=== PATIENT | female | born 1970 | race Caucasian/White ===

== ENCOUNTER → 2017-02-01 | Outpatient (CLI) | payer BC ==
--- NOTE | 2017-02-01 14:59 | US ---
EXAM DESCRIPTION: Breast,Right CLINICAL HISTORY: LYMPHADENOPATHY, LOCALIZED ENLARGED LYMPH NODES. "I have breast tissue in my armpit. This knot in my right armpit is larger and more tender than others I have had previously." Patient has refused digital mammography and breast MRI with gadolinium IV contrast. COMPARISON: None Available. TECHNIQUE: Transcutaneous scanning: Two-dimensional and Doppler modes. FINDINGS: Irregular hypoechoic heterogeneous mass with minimal vascularity in the right axilla. The mass is palpable and has indistinct and micro-lobulated margins. Non parallel orientation. Mixed posterior features. Dimensions are 2.3 x 1.9 x 1.5 cm. No other discrete solid nodules, no cysts, no parenchymal edema, and no calcifications. IMPRESSION: BI-RADS CATEGORY: 4A - LOW SUSPICION FOR MALIGNANCY. Surgical consultation and tissue diagnosis should be considered. Also digital 3-D bilateral breast tomosynthesis and bilateral breast MRI with gadolinium IV contrast. Findings and follow-up plan were discussed in person with the patient. Written communication explaining the results and follow-up will be mailed to the patient and referring care provider. CRITICAL COMMUNICATION: The critical value was discussed directly by phone with AURE Noriega, at approximately 1445 hours, on February 01, 2017. Electronically signed by: Rafy Sauceda MD 02/01/2017 2:58 PM CDT
== END | disposition home or self-care (01) ==
LOC: US 13:24
PROVIDERS: ATTEND Nurse Practitioner Family
DX: R59.0 Localized enlarged lymph nodes (principal)

== ENCOUNTER → 2017-02-08 | Outpatient (CLI) | payer BC ==
--- NOTE | 2017-02-08 17:15 | US ---
EXAM DESCRIPTION: Breast,Bilateral CLINICAL HISTORY: 46 yearsFemaleABNORMAL BILATERAL BREAST DENSITIES. ABNORMAL MASS IN RIGHT AXILLA ON PRIOR ULTRASOUND. COMPARISON: Digital 3-D tomosynthesis bilateral breast examination today. Ultrasound of the right breast axilla on 02/01/2017. TECHNIQUE: Transcutaneous scanning of the bilateral breasts utilizing two-dimensional and Doppler modes. Scanning performed by the tray delivery aide and Dr. Sauceda. FINDINGS: Hypoechoic lobulated mass with mostly well-circumscribed borders with some borders not well defined, at the 1000 clock position retroareolar right breast. Minimal vascularity on the periphery. Nonparallel orientation. Acoustic enhancement posterior. Dimensions 10.5 x 9.8 cm. At the 1200 clock position of the right breast are anechoic masses with well-defined borders, and no vascularity and posterior acoustic enhancement. Other smaller cysts in the right breast. At the 300 clock position of the left breast, 3 cm from the nipple is a oval-shaped anechoic mass with possible septations or well-circumscribed borders measuring 4.3 X 3.7 x 2.4 cm with no vascularity. Acoustic enhancement posterior. Smaller cysts ranging in size from 15 to 10 mm abutting this larger cyst. At the 300 clock position of the left breast, 8 cm from the nipple, is a hypoechoic mass with minimal lobulation and mostly well circumscribed and partially obscured margins. Parallel orientation. Minimal vascularity of the periphery. Attenuation acoustic posterior features. 8 x 7 mm diameter. Other smaller cysts in the right breast. IMPRESSION: BI-RADS CATEGORY: SUSPICIOUS. SUB-CATEGORY 4A - LOW SUSPICION FOR MALIGNANCY. Surgical consultation and tissue diagnosis should be considered (bilateral lesions). Written communication explaining the results and follow-up will be mailed to the patient and referring care provider. The findings and the follow-up plan were reviewed in person with the patient after the examination. CRITICAL COMMUNICATION: The critical value was discussed directly by phone with Dr. Elias Rivers at approximately 1615 hours, on February 08, 2017. Electronically signed by: Rafy Sauceda MD 02/08/2017 5:14 PM CDT
--- NOTE | 2017-02-10 09:23 | MAM ---
EXAM DESCRIPTION: 3D Diagnostic, Bilateral CLINICAL HISTORY: 46 yearsFemaleLYMPHADENOPATHY . "Lump in right armpit." Bilateral mammoplasty. No family history of breast cancer. Premenopausal. HRT five or less years ago, not currently. COMPARISON: 2-D digital screening bilateral study 06/17/2011. Ultrasound of the right axilla 02/01/2017. Targeted bilateral breast ultrasound on this visit. Report from prior examination also reviewed. TECHNIQUE: Bilateral CC, LM and MLO projection full-field images, 3-D tomosynthesis digital mammographic technique. Also bilateral synthesized CC/ MLO and LM full-field images. CAD not utilized. FINDINGS: The breast parenchymal density pattern is: Extremely dense breast tissue, which lowers the sensitivity of mammography. No skin thickening or nipple retraction . Left breast: mass density in the lateral aspect of the middle third of the left breast at the 230 clock position with partially well-circumscribed and partially indistinct margins. No definite calcifications. Dimensions are 3.6 x 3.8 cm. Posterior to this mass is a region of focal asymmetry measuring approximately 10 x 15 mm at approximately the 300 clock position. No microcalcifications. Another subcentimeter mass with well circumscribed borders is seen in the same region. No microcalcifications. Right breast: Large dense well-circumscribed mass in the right axilla measuring 2.0 x 1.7 cm with small calcification. This was scanned on sonographic examination February 01. Small oval-shaped mass density, mostly well circumscribed borders with some indistinctness measuring 1.4 x 1.3 cm at the 10-o'clock position, 4 cm from the nipple. ULTRASOUND: Right breast - Hypoechoic lobulated mass with mostly well-circumscribed borders with some borders indistinct, at the 1000 clock position retroareolar. Minimal vascularity on the periphery. Nonparallel orientation. Acoustic enhancement posterior. Dimensions 10.5 x 9.8 cm. At the 1200 clock position, anechoic masses with well-defined borders, no vascularity and posterior acoustic enhancement. Other smaller cysts in the breast. Left breast - At the 300 clock position, 3 cm from the nipple is a oval-shaped anechoic mass with possible septations or well-circumscribed borders measuring 4.3 X 3.7 x 2.4 cm with no vascularity. Acoustic enhancement posterior. Smaller cysts ranging in size from 15 to 10 mm abutting this larger cyst. At the 300 clock position of the left breast, 8 cm from the nipple, is a hypoechoic mass with minimal lobulation and mostly well circumscribed and partially obscured margins. Parallel orientation. Minimal vascularity of the periphery. Attenuation acoustic posterior features. 8 x 7 mm diameter. Other smaller cysts in the right breast. IMPRESSION: BI-RADS CATEGORY 4: SUSPICIOUS. SUB-CATEGORY 4A - LOW SUSPICION FOR MALIGNANCY. Surgical consultation and tissue diagnosis should be considered. The findings and follow-up were discussed in person with the patient following the ultrasound examination. Written communication explaining the results and follow-up will be mailed to the patient and referring care provider. CRITICAL COMMUNICATION: The critical value was discussed directly by phone with Dr. Elias Rivers at approximately 1615 hours, on February 08, 2017. Electronically signed by: Rafy Sauceda MD 02/10/2017 9:22 AM CDT
== END ==
LOC: MAMMO 14:01
PROVIDERS: ATTEND Surgery
DX: R59.0 Localized enlarged lymph nodes (principal); N60.02 Solitary cyst of left breast

== ENCOUNTER → 2017-02-22 | Outpatient (CLI) | payer BC ==
--- NOTE | 2017-02-22 09:28 | US ---
EXAM DESCRIPTION: Biopsy/Needle Guidance CLINICAL HISTORY: 46 yearsFemaleRT AND LT BREAST LESIONS AND RT AXILLARY MASS COMPARISON: Diagnostic ultrasound of the left breast on 02/08/2017. TECHNIQUE: The procedure was performed by Dr. Rivers. Repeat ultrasound localized the lesion at the 300 clock position of the left breast. Sterile preparation. Sterile ultrasound guidance. FINDINGS: Previously imaged hypoechoic lobulated lesion at the 300 clock position of the left breast 8 cm from the nipple. Attenuated posterior features again noted. Multiple orthogonal images showing the biopsy needle within the mass. IMPRESSION: Successful, ultrasound-guided fine-needle core biopsy of left breast mass. Pathology examination at remote facility, results pending. Electronically signed by: Rafy Sauceda MD 02/22/2017 9:27 AM CDT
--- NOTE | 2017-02-22 11:04 | US ---
EXAM DESCRIPTION: Biopsy/Needle Guidance CLINICAL HISTORY: 46 yearsFemaleABN MAMMO COMPARISON: Diagnostic ultrasound of the right breast on 02/08/2017. TECHNIQUE: The procedure was performed by Dr. Rivers. Repeat ultrasound localized the lesion at the 1000 position of the retroareolar right breast. Sterile preparation. Sterile ultrasound guidance. Technically difficult study due to mass displacement by the needle. FINDINGS: Hypoechoic-anechoic lesion with lobulated borders again scanned. Posterior mixed features with parallel orientation. Images demonstrate displacement of the mass with the needle, but orthogonal images show the needle within the mass. IMPRESSION: Successful, ultrasound-guided fine-needle core biopsy of right breast mass. Cores were obtained. Pathology examination at remote facility, results pending. Electronically signed by: Rafy Sauceda MD 02/22/2017 11:02 AM CDT
--- NOTE | 2017-02-22 11:09 | US ---
EXAM DESCRIPTION: Biopsy/Needle Guidance ultrasound. CLINICAL HISTORY: 46 yearsFemaleABN MAMMO COMPARISON: Diagnostic ultrasound of the bilateral breast on 02/08/2017. Bilateral breast ultrasound guided core biopsies on this visit. TECHNIQUE: The procedure was performed by Dr. Rivers. Repeat ultrasound localized the lesion in the right axilla. Sterile preparation. Sterile ultrasound guidance. FINDINGS: Initial images show 2 x 2 cm heterogeneous hypoechoic mass in the right axilla with nonparallel orientation and attenuating posterior features. Multiple images with orthogonal images showing the echogenic needle within the mass. IMPRESSION: Successful, ultrasound-guided needle core biopsy of right axillary mass. Adequate cores were obtained. Pathology examination at remote facility, results pending. Electronically signed by: Rafy Sauceda MD 02/22/2017 11:08 AM CDT
--- NOTE | 2017-02-23 11:31 | OP ---
DATE OF PROCEDURE: 02/22/17 PREOPERATIVE DIAGNOSIS: 1. Abnormal right and left mammogram with solid masses and right axillary mass. POSTOPERATIVE DIAGNOSIS: 1. Abnormal right and left mammogram with solid masses and right axillary mass. PROCEDURE: 1. Sonographically guided needle core biopsy, left breast mass, right breast mass, and right axillary mass. SURGEON: Elias Rivers MD. BIOMASS PRODUCTION MANAGER: None. ANESTHESIA: Local infiltration with 1% lidocaine. INDICATION: The patient is a 46-year-old female who has had multiple cysts in the past. She developed a right axillary mass sometime ago. It is solid in nature. There is no palpable mass in either breast, but mammography revealed masses in both breasts along with multiple cystic lesions. Today, she was brought to the [facility]ound [facility] for sonographically guided biopsy of each lesion. PROCEDURE: The lesions were done with separate sets of instruments and they were done first with the left breast, then the right breast, then the right axilla. All procedures were the same. The lesion was identified. The skin away from this was prepped with Betadine and draped. Local infiltration of anesthesia was obtained with lidocaine. A stab wound was made with a 15 blade and then multiple passes were made with the needle core biopsy device. All three specimens had specimen sent for permanent pathological identification and the axillary lesion also had tissue sent for flow cytometry if there is any abnormality on the axillary lesion and it is not obviously breast malignancy. All of the skin incisions were closed with a single 4-0 Prolene suture. The patient tolerated the procedure well. Estimated blood loss was approximately 10 mL for all three areas. Sterile pressure dressing was applied. The patient tolerated the procedure well and was discharged home. #[id number] [id number]
== END | disposition home or self-care (01) ==
LOC: US 08:00
PROVIDERS: ATTEND Surgery
PROC: 0HBV3ZX Excision of Bilateral Breast, Percutaneous Approach, Diagnostic (ICD-10-PCS; principal; 2017-02-22)
PROC: 0HBV3ZX Excision of Bilateral Breast, Percutaneous Approach, Diagnostic (ICD-10-PCS; 2017-02-22)
PROC: 0JB63ZX Excision of Chest Subcutaneous Tissue and Fascia, Percutaneous Approach, Diagnostic (ICD-10-PCS; 2017-02-22)
DX: R92.2 Inconclusive mammogram (principal); L98.8 Other specified disorders of the skin and subcutaneous tissue

== ENCOUNTER → 2017-09-01 | Outpatient (CLI) | payer BC ==
--- NOTE | 2017-09-02 09:49 | MAM ---
EXAM DESCRIPTION: Diagnostic Mammo,Bilateral: Digital Mammography CLINICAL HISTORY: 47 yearsFemaleDX FOLLOW UP . Six-month Follow-up benign bilateral breast biopsy January 2017.. No complaints. No family history of breast cancer. Taking HRT more than 5 years ago. Previous bilateral breast reduction. COMPARISON: 3-D tomosynthesis bilateral diagnostic mammography 02/08/2018.. Reports from prior examinations also reviewed. TECHNIQUE: Bilateral CC LM MLO projection full-field images, 3-D tomosynthesis digital mammographic technique. Also bilateral synthesized CC MLO LM full-field images. CAD not utilized. FINDINGS: The breast parenchymal density pattern is: Extremely dense breast tissue, which lowers the sensitivity of mammography. No skin thickening or nipple retraction bilateral axillary lymph nodes. Largest lymph node in the right axilla also contains calcifications. Bilateral solitary microcalcifications. No focal, stellate mass or density, focal asymmetry , and no suspicious microcalcifications bilaterally. Stable mammograms compared to prior study, taking into account differences in mammographic technique IMPRESSION: BI-RADS CATEGORY: 2 - BENIGN FINDINGS. FOLLOW UP: Return to routine digital bilateral screening, one year interval from August 2017. Written communication explaining the IMPRESSION and follow-up, will be mailed to the patient and referring health care provider. According to the [employer], yearly mammograms are recommended starting at age 40 and continuing as long as a woman is in good health. Any breast change noted on a breast self-exam should be reported promptly to the patient's healthcare provider. Breast MRI is recommended for women with an approximately 20-25% or greater lifetime risk of breast cancer, including women with a strong family history of breast or ovarian cancer and women who have been treated for Hodgkin's disease. A negative mammographic report should not delay tissue diagnosis in patients with significant clinical history or physical findings. Extremely dense breast tissue limits the sensitivity of digital mammography. Electronically signed by: Rafy Sauceda MD 09/02/2017 9:47 AM CDT
== END | disposition home or self-care (01) ==
LOC: MAMMO 09:07
PROVIDERS: ATTEND Surgery
DX: Z12.31 Encounter for screening mammogram for malignant neoplasm of breast (principal)

== ENCOUNTER → 2017-12-16 | Outpatient (CLI) | payer BC ==
--- NOTE | 2017-12-16 15:26 | MRI ---
EXAM DESCRIPTION: Cervical Spine: MRI. CLINICAL HISTORY: NECK PAIN COMPARISON: MRI scan of the lumbar spine on this visit. TECHNIQUE: Multiplanar MRI, multiple sequences, non-contrast High-field. FINDINGS: C2-3: Minimal disc desiccation. No bulging. Disc space preserved. Canal and foramina are patent. Posterior elements unremarkable C3-4: Normal signal in the disc with minimal disc space loss. Left uncinate spur and minimal narrowing of the neural foramen. Canal and right neuroforamen patent. Posterior elements are unremarkable. C4-5: Minimal disc desiccation and minimal disc space loss. No disc bulging. Posterior elements unremarkable. Canal and foramina are patent. C5-6: Disc desiccation and mild to moderate disc space loss. Grade 1 retrolisthesis. Posterior disc osteophyte complex abutting the cord. Bilateral uncinate spurs. Bilateral moderate neural foraminal narrowing. Moderate canal narrowing. Hypertrophy of the posterior ligaments, facets are unremarkable. C6-7: Disc desiccation and minimal disc space loss. Modic type I endplate reactive changes. Posterior mild bulge.. Bilateral small uncinate spurs. Bilateral mild neural foraminal narrowing. Canal is patent. Mild arthrosis of the facets bilaterally. Normal signal in the remaining discs with no bulging. Disc spaces preserved. Canal and neural foramina are patent. Facets unremarkable. Spinal alignment anatomic.. No cord compression or cord edema. Atlantoaxial joint is unremarkable. Base of the cerebellar tonsils is above the foramen magnum. Paravertebral soft tissues negative. Vertebral bodies are not compressed at any level. Normal marrow signal in the remaining vertebral bodies and the posterior elements. IMPRESSION: 1. Disc desiccation at several levels. Mild spondylosis at C5-6 and C6-7. 2. No canal or foraminal stenosis at any level. No significant facet arthrosis. No acute bony abnormality. No cord compression or edema. Electronically signed by: Rafy Sauceda MD 12/16/2017 3:25 PM CDT
--- NOTE | 2017-12-16 15:42 | MRI ---
EXAM DESCRIPTION: Lumbar Spine w/o Contrast : Magnetic Resonance Imaging. CLINICAL HISTORY: LOW BACK PAIN COMPARISON: MRI scan of the cervical spine on this visit. MRI scan lumbar spine June 2013. TECHNIQUE: Multiplanar, multiple standard sequences, non contrast MRI, lumbar spine. FINDINGS: L5-S1: Disc desiccation and disc space loss. Left paracentral disc protrusion has extruded more inferiorly, now approximately 9 mm of inferior extension with mass effect on the descending left S1 in the lateral recess. Left paracentral mild canal stenosis. Bilateral foramina are patent. Anterior Modic type II endplate reactive changes in the endplates. Minimal facet arthrosis and flavum ligament hypertrophy. L4-5: Normal signal in the disc and disc space preserved. Posterior elements unremarkable. Canal and foramina are patent. L3-4: Minimal disc space loss with desiccation. Minimal hypertrophy of the flavum ligaments. Facets are unremarkable. Canal and neural foramina are patent. L2-3: Normal signal in the disc and disc space preserved. Posterior elements unremarkable. Canal and neural foramina are patent. L1-2: Minimal disc desiccation and disc space preserved. Posterior elements unremarkable. Canal and foramina are patent. T12-L1: Normal signal and disc except for minimal desiccation anteriorly. Disc spaces preserved. Posterior elements unremarkable. Canal and foramina are patent. Conus terminates just above the disc space. Anatomic alignment. Paravertebral soft tissues unremarkable.. Otherwise normal marrow signal in the remaining vertebral bodies and the posterior elements. Vertebral bodies are not compressed at any level. IMPRESSION: 1. Disc desiccation and disc space loss which is progressed since the prior study along with further extrusion of the disc to the left with encroachment on the descending left S1 nerve. Correlate for radiculopathy. Left paracentral canal stenosis. Progression of spondylosis since the prior study. 2. L3-4 disc desiccation is progressed since the prior study. No significant disc bulging. Canal and foramina are patent. Electronically signed by: Rafy Sauceda MD 12/16/2017 3:41 PM CDT
== END ==
LOC: MRI 09:54
PROVIDERS: ATTEND Nurse Practitioner Family
DX: M51.36 Other intervertebral disc degeneration, lumbar region (principal); M50.320 Other cervical disc degeneration, mid-cervical region, unspecified level

== ENCOUNTER → 2019-11-13 | Outpatient (CLI) | payer BC ==
--- NOTE | 2019-11-13 16:48 | MAM ---
EXAM DESCRIPTION: 3D Screening BILATERAL : Digital Mammography. CLINICAL HISTORY: 49 years Female ANNUAL SCREENING . No complaints. No personal or family history of breast cancer. Prior bilateral breast reduction. Menarche age 11. Childbirth age 20. Pre-Menopause. No HRT. Prior bilateral benign biopsies.. Lifetime risk of developing breast cancer (Tyrer-Cuzick model)(%): 8.0. COMPARISON: Bilateral breast diagnostic tomosynthesis August 2017. Bilateral diagnostic breast tomosynthesis January 2017 and August 2017. Bilateral breast ultrasound January 2017.. TECHNIQUE: Bilateral CC and MLO projection full-field images, digital tomosynthesis mammographic technique. Bilateral digital 2-D full-field MLO images. CAD available for 2-D images. FINDINGS: The breast parenchymal density pattern is: Extremely dense breast tissue, which lowers the sensitivity of mammography. No skin thickening or nipple retraction. Again noted is a round lymph node in the right axilla with multiple microcalcifications scattered throughout the dense breast tissue bilaterally. Microcalcifications. Mostly circumscribed mass similar density to the surrounding fibroglandular tissues in the anterior mid left breast measuring approximately 5.4 x 3.7 cm. Measured 4.7 x 3.5 cm on the prior study, and documented cyst on the ultrasound January 2017. Possibly a bilobed cyst or septation on the tomosynthesis images.. No new focal, stellate mass or density, focal asymmetry , and no suspicious microcalcifications bilaterally. IMPRESSION: Benign exam. Enlarging cyst left breast. BIRAD CATEGORY: 2 BENIGN FINDINGS. RECOMMENDATIONS: FOLLOW UP: Routine digital bilateral mammographic screening, one year interval from October 2019. Written communication explaining the IMPRESSION and follow-up, will be mailed to the patient and referring health care provider. According to the [employer], yearly mammograms are recommended starting at age 40 and continuing as long as a woman is in good health. Any breast change noted on a breast self-exam should be reported promptly to the patient's healthcare provider. Breast MRI is recommended for women with an approximately 20-25% or greater lifetime risk of breast cancer, including women with a strong family history of breast or ovarian cancer and women who have been treated for Hodgkin's disease. A negative mammographic report should not delay tissue diagnosis in patients with significant clinical history or physical findings. Extremely dense breast tissue limits the sensitivity of digital mammography. Electronically signed by: Rafy Sauceda MD 11/13/2019 4:47 PM CDT
== END ==
LOC: MAMMO 09:00
PROVIDERS: ATTEND Nurse Practitioner Family
DX: Z12.31 Encounter for screening mammogram for malignant neoplasm of breast (principal); N60.02 Solitary cyst of left breast